=== PATIENT | female | born 1980 | race American Indian/Alaskan Native ===

== ENCOUNTER 2016-11-22 01:40 | Emergency (ER) | payer MEDICAID ==
[~2016-11-22] VITALS: Ht 162.6 cm; Wt 99.9 kg
[~2016-11-22 01:40] MED LIST: CYCL-259 PO; GABA600T2 PO; HYDR-3240 PO; SULF1TAB23 PO; TRAM50TA2 PO
[2016-11-22] MEDS ORDERED: GABA800T2 PO (02:01)
[2016-11-22] MEDS ORDERED: CYCL5TAB PO (02:02)
[2016-11-22] MEDS ORDERED: OMEP40CA6 PO (02:03)
[2016-11-22] MEDS ORDERED: ATEN25TA PO (02:03)
[2016-11-22] MEDS ORDERED: SIMV20TA3 PO (02:03)
[2016-11-22 02:26] LABS: BLOOD UREA NITROGEN 15 mg/dL (7-18)
[2016-11-22 02:32] LABS: IS PT STATUS REG ER OR PRE ER? YES
[2016-11-22 03:31] VITALS: BP 107/58
== END 2016-11-22 03:36 | disposition home or self-care (01) ==
LOC: ED 02:30
DX: J45.31 Mild persistent asthma with (acute) exacerbation (principal); E78.5 Hyperlipidemia, unspecified; I10 Essential (primary) hypertension
CPT/HCPCS: 36415; 71010; 80048; 82040; 83880; 84484; 85025; 93005; 99285

== ENCOUNTER 2017-01-08 03:52 | Observation (INO) | payer MEDICAID ==
[~2017-01-08] VITALS: Ht 162.6 cm; Wt 96.5 kg
[~2017-01-08 03:52] MED LIST changes: +ATEN25TA PO; +CYCL5TAB PO; +GABA800T2 PO; +OMEP40CA6 PO; +SIMV20TA3 PO
[2017-01-08] MEDS ORDERED: LORazepam 1MG TABLET PO ONE (04:30)
[2017-01-08 04:42] LABS: DAU SCREEN DISCLAIMER
[2017-01-08] MEDS ORDERED: LORazepam 1MG TABLET ONE (04:44)
[2017-01-08 04:49] LABS: BLOOD UREA NITROGEN 16 mg/dL (7-18)
[2017-01-08 05:09] LABS: ACETAMINOPHEN < 2 mcg/mL (10-30)
[2017-01-08 09:37] VITALS: BP 108/64
[2017-01-08] MEDS ORDERED: HYDROcodone/APAP 5/325 TABLET PO SCH (10:00)
[2017-01-08] MEDS ORDERED: OLANZAPINE 5 MG TABLET PO PRN (10:00)
[2017-01-08] MEDS ORDERED: ATENOLOL 25 MG TABLET PO SCH (10:00)
[2017-01-08] MEDS: GABAPENTIN 400 MG CAPSULE PO SCH ×3 (10:00→20:23)
[2017-01-08] MEDS ORDERED: hydrOXyzine 50MG TABLET PO PRN (10:00)
[2017-01-08] MEDS: METOPROLOL TARTRATE 100 MG TABLET PO SCH ×2 (10:21→18:00)
[2017-01-08] MEDS ORDERED: ACETAMINOPHEN 325 MG TABLET PO PRN (10:30)
[2017-01-08] MEDS ORDERED: ONDANSETRON ODT 4 MG PO PRN (10:30)
[2017-01-08] MEDS ORDERED: METOPROLOL TARTRATE 50 MG TABLET ONE ×2 (10:49→16:32)
[2017-01-08] MEDS ORDERED: NORCO MC SCH (11:00)
[2017-01-08] MEDS ORDERED: GABAPENTIN 100 MG CAPSULE ONE ×3 (12:04→20:20)
[2017-01-08] MEDS ORDERED: GABAPENTIN 300 MG CAPSULE ONE ×3 (12:05→20:20)
[2017-01-08] MEDS: POTASSIUM CHLORIDE 20 MEQ TAB.ER.PRT PO SCH ×2 (12:41→14:20)
[2017-01-08] MEDS: ENOXAPARIN 40 MG/0.4 ML SQ SCH (12:42)
[2017-01-08] MEDS: NICOTINE 21 MG/24 HR PATCH.TD24 TD SCH (12:42)
[2017-01-08] MEDS: OMEPRAZOLE 20 MG CAPSULE.DR PO SCH (14:20)
[2017-01-08 16:33] VITALS: BP 133/79
[2017-01-08 20:02] VITALS: BP 112/72
[2017-01-08] MEDS ORDERED: SIMVASTATIN 20 MG TABLET PO SCH (21:00)
[2017-01-08] MEDS ORDERED: CYCLOBENZAPRINE 10 MG TABLET PO SCH (21:00)
[2017-01-09 06:12] LABS: BLOOD UREA NITROGEN 22 mg/dL (7-18)
[2017-01-09] MEDS: METOPROLOL TARTRATE 100 MG TABLET PO SCH ×2 (06:32→18:00)
[2017-01-09] MEDS: OMEPRAZOLE 20 MG CAPSULE.DR PO SCH (07:57)
[2017-01-09] MEDS: GABAPENTIN 400 MG CAPSULE PO SCH ×2 (07:57→16:01)
[2017-01-09 08:28] VITALS: BP 107/71
[2017-01-09] MEDS: NICOTINE 21 MG/24 HR PATCH.TD24 TD SCH (10:54)
[2017-01-09] MEDS: ENOXAPARIN 40 MG/0.4 ML SQ SCH (10:55)
[2017-01-09 18:05] VITALS: BP 106/74
== END 2017-01-09 18:33 ==
LOC: ED 06:03 → EDIP 07:48 → 3E 09:26 → INTOOBSV 10:09 → OBSVTOIN 10:09
PROVIDERS: ADMIT Internal Medicine; ATTEND Internal Medicine
DX: R45.851 Suicidal ideations (principal); F32.9 Major depressive disorder, single episode, unspecified; E87.6 Hypokalemia; J45.909 Unspecified asthma, uncomplicated; K21.9 Gastro-esophageal reflux disease without esophagitis; I10 Essential (primary) hypertension; G62.9 Polyneuropathy, unspecified; F41.1 Generalized anxiety disorder; Z95.5 Presence of coronary angioplasty implant and graft
CPT/HCPCS: 36415; 80048; 80307; 80329; 82040; 84443; 84702; 84703; 85025; 87040; 87324; 93005; 93306; 96372; 99285; G0378; J1650; G0480

== ENCOUNTER 2018-10-24 14:46 | Emergency (ER) | payer MEDICAID ==
[~2018-10-24] VITALS: Ht 165.1 cm; Wt 101.9 kg
[~2018-10-24 14:46] MED LIST changes: -GABA600T2 PO; +GABA600T7 PO; -GABA800T2 PO; +GABA800T5 PO
--- NOTE | 2018-10-24 15:09 | NUR ---
PT STATED "SHE COULDNT SEE ANYTHING WITH JUST HER LEFT EYE" DURING [facility]
[2018-10-24] MEDS ORDERED: PROPARACAINE OPHTH 0.5%, 15ML EACHEYE ONE (15:30)
[2018-10-24] MEDS ORDERED: FLUORESCEIN/BENOXINATE 5 ML DROPS OP ONE (15:30)
[2018-10-24] MEDS ORDERED: FLUORESCEIN OPHTHALMIC 1 MG STRIP ONE (15:36)
[2018-10-24] MEDS ORDERED: PROPARACAINE OPHTH 0.5%, 15ML ONE (15:36)
--- NOTE | 2018-10-24 15:44 | NUR ---
FIRST CONTACT WITH PT. Per Pt, "yesterday I was sitting watching TV and all of the sudden loss all vision in my left eye. I had an eye doctor appt today so I just waited till I saw them. The said I had a tear behind my eye in the left eye with an ultrasound they saw that. They sent me here." NADN. All safety measures in place. Pt is AOX4, skin is pink, warm, and dry, and pt has unlabored respiratiosn equal bilaterally. Call light within reach.
--- NOTE | 2018-10-24 16:24 | NUR ---
Spoke to Jessica from, Dr. Paco Bautista's office at [facility]. Dr. Bautista's office wants pt to go to [facility] due to [facility] does not take N medicaid. Per Jessica, "Go to [facility], no food or water after 12 am tonight for possible surgery with Dr. Mccurdy tomorrow." ED MD notified.
--- NOTE | 2018-10-24 17:24 | NUR ---
PT. WAS GIVEN DISCHARGE INSTRUCTIONS WITH UNDERSTANDING VERBALIZED ALONG WITH WILLINGNESS TO COMPLY. PT. WAS AMBULATORY TO THE DISCHARGE DESK. VSS.
[2018-10-24 17:25] VITALS: BP 143/94
== END 2018-10-24 17:27 | disposition home or self-care (01) ==
LOC: ED 17:25
DX: H53.132 Sudden visual loss, left eye (principal); H33.22 Serous retinal detachment, left eye; I10 Essential (primary) hypertension
CPT/HCPCS: 99284

== ENCOUNTER 2019-05-17 17:10 | Emergency (ER) | payer MEDICAID ==
[~2019-05-17] VITALS: Ht 162.6 cm; Wt 98.5 kg
[~2019-05-17 17:10] MED LIST changes: +OMEP40CA42 PO; -OMEP40CA6 PO
--- NOTE | 2019-05-17 19:09 | NUR ---
ASSUMED CARE OF PT FROM LOBBY. PT C/O CP SINCE NOON TODAY WHILE WORKING AT [employer]. PT DESCRIBES PAIN SHARP RADIATING ACROSS CHEST AND DOWN BOTH ARMS. CP NOW IS STERNAL AND REPRODUCIBLE WITH ARM MOVEMENT AND PALPATION. PT ON MONITOR. CHART UP FOR .
--- NOTE | 2019-05-17 19:45 | NUR ---
REPORT RECEIVED FROM JAIR CONNOR. ASSUMED CARE OF PT AT THIS TIME.
[2019-05-17] MEDS ORDERED: ASPIRIN 81 MG TABLET CHEW ONE (19:59)
[2019-05-17] MEDS ORDERED: KETOROLAC 60 MG/2 ML ONE (19:59)
[2019-05-17] MEDS ORDERED: ASPIRIN 81 MG TABLET CHEW PO ONE (20:00)
[2019-05-17] MEDS ORDERED: KETOROLAC 30 MG/1 ML IM ONE (20:00)
[2019-05-17 20:02] LABS: BASOPHILS # (AUTO) 0.05 x10^3/uL (0-0.1); BASOPHILS % (AUTO) 1 % (0-1); EOSINOPHILS # (AUTO) 0.13 x10^3/uL (0-0.4); EOSINOPHILS % (AUTO) 2 % (1-7); LYMPHOCYTES # (AUTO) 2.98 x10^3/uL (1-3.4); LYMPHOCYTES % (AUTO) 33 % (22-44); MD NO; MEAN CORPUSCULAR HEMOGLOBIN 30.3 pg (27.0-34.8); MEAN CORPUSCULAR HGB CONC 32.5 g/dL (32.4-35.8); MEAN CORPUSCULAR VOLUME 93.1 fL (80-100); MEAN PLATELET VOLUME 8.4 fL (7.4-10.4); MONOCYTES # (AUTO) 0.45 x10^3/uL (0.2-0.8); MONOCYTES % (AUTO) 5 % (2-9); NEUTROPHILS # (AUTO) 5.46 x10^3/uL (1.8-6.8); NEUTROPHILS % (AUTO) 60 % (42-75); PLATELET COUNT 310 x10^3/uL (130-400); RED BLOOD COUNT 4.41 x10^6/uL (3.82-5.3); RED CELL DISTRIBUTION WIDTH 14.4 % (9.6-15.2)
[2019-05-17 20:12] LABS: ALBUMIN 3.6 g/dL (3.4-5.0); ANION GAP 8 mmol/L (5-15); CALCIUM 8.6 mg/dL (8.5-10.1); CHLORIDE 109 mmol/L (98-107)
--- NOTE | 2019-05-17 20:15 | NUR ---
PT MEDICATED ORDERED FOR 7/10 CHEST PAIN THAT IS WORSE WITH MOVEMENT AND PALPATION. PT AO X 4. SKIN PWD. RESP EVEN AND UNLABORED. NAD NOTED AT THIS TIME. PT CALMLY WATCHING TV. PT ON CONT BP, CARDIAC AND O2 MONITORS. NSR 70'S NOTED ON CARDIAC MONTIORS. CALL LIGHT WITHIN ERACH. WILL CONT TO MONITOR PT.
[2019-05-17 20:18] LABS: ALANINE AMINOTRANSFERASE 24 U/L (12-78); ALKALINE PHOSPHATASE 85 U/L (45-117); BILIRUBIN,TOTAL 0.5 mg/dL (0.2-1.0); CREATININE 0.71 mg/dL (0.55-1.02); TOTAL PROTEIN 7.2 g/dL (6.4-8.2); TROPONIN I < 0.015 ng/mL (0.000-0.045)
[2019-05-17 21:35] VITALS: BP 106/47
--- NOTE | 2019-05-17 21:38 | NUR ---
PT CURRENTLYR RESTING ON GURNEY. NAD NOTED. SKIN PWD. RESP EVEN AND UNLABORED. PT REPORTS THAT PAIN IS IMPROVED AND TOLERABLE AT 2/10. PT WATCHING TV. NAD NOTED. SKIN PWD. RESP EVEN AND UNLABORED. CALL LIGHT WITHIN REACH. WILL CONT TO MONITOR PT.
--- NOTE | 2019-05-17 21:59 | NUR ---
REPORT TO JAIR WARREN WHO ASSUMED CARE OF PT.
== END 2019-05-17 22:11 | disposition home or self-care (01) ==
LOC: ED 22:01
DX: R07.89 Other chest pain (principal); F17.200 Nicotine dependence, unspecified, uncomplicated; I10 Essential (primary) hypertension; J45.909 Unspecified asthma, uncomplicated; Z90.49 Acquired absence of other specified parts of digestive tract
CPT/HCPCS: 36415; 80053; 84484; 85025; 93005; 96372; 99284; J1885

== ENCOUNTER 2019-07-18 09:57 | Emergency (ER) | payer MEDICAID ==
[~2019-07-18] VITALS: Ht 162.6 cm; Wt 102.6 kg
[2019-07-18 10:03] VITALS: BP 143/79
[2019-07-18] MEDS ORDERED: CYCLOBENZAPRINE 10 MG TABLET ONE (11:29)
[2019-07-18] MEDS ORDERED: KETOROLAC 30 MG/1 ML ONE (11:29)
[2019-07-18] MEDS ORDERED: CYCLOBENZAPRINE 10 MG TABLET PO ONE (11:30)
[2019-07-18] MEDS ORDERED: KETOROLAC 30 MG/1 ML IM ONE (11:30)
== END 2019-07-18 13:05 | disposition home or self-care (01) ==
LOC: ED 13:00
DX: M54.42 Lumbago with sciatica, left side (principal); I10 Essential (primary) hypertension; J45.909 Unspecified asthma, uncomplicated; Z88.0 Allergy status to penicillin
CPT/HCPCS: 72080; 72110; 73502; 93005; 96372; 99283; J1885

== ENCOUNTER 2019-11-02 11:40 | Emergency (ER) | payer MEDICAID ==
[~2019-11-02] VITALS: Ht 162.6 cm; Wt 100.0 kg
[~2019-11-02 11:40] MED LIST changes: +SIMV20TA19 PO; -SIMV20TA3 PO
[2019-11-02 12:01] VITALS: BP 122/80
--- NOTE | 2019-11-02 12:04 | NUR ---
connectec to monitor. in gown. call light within reach
[2019-11-02] MEDS ORDERED: DIPH,PERTUSS(ACELL),TET VAC/PF 0.5 ML IM-VACC ONE (12:30)
[2019-11-02] MEDS ORDERED: LIDOCAINE 1%-EPI 1:100K, 20ML INFIL ONE (12:30)
[2019-11-02] MEDS ORDERED: DIVALPROEX 250 MG TABLET.DR PO ONE (14:00)
[2019-11-02] MEDS ORDERED: ARIPIPRAZOLE 5 MG TABLET PO ONE (14:00)
[2019-11-02] MEDS ORDERED: DOXEPIN 100 MG CAPSULE PO SCH (21:00)
== END 2019-11-02 13:57 | disposition home or self-care (01) ==
LOC: ED 12:47
DX: F25.8 Other schizoaffective disorders (principal); I10 Essential (primary) hypertension; J45.909 Unspecified asthma, uncomplicated; F31.9 Bipolar disorder, unspecified; Z90.49 Acquired absence of other specified parts of digestive tract
CPT/HCPCS: 99283

== ENCOUNTER 2019-12-31 15:38 | Emergency (ER) | payer MEDICAID ==
[~2019-12-31] VITALS: Ht 162.6 cm; Wt 89.5 kg
[2019-12-31 15:40] VITALS: BP 124/67
--- NOTE | 2019-12-31 16:00 | NUR ---
assumed care of pt. report from Kinjal ADAM. pt here for SI with plan, +high lethaliy. pt has been undressed and room secured. sitter present fo safety. no family at bedside
--- NOTE | 2019-12-31 16:17 | NUR ---
psych at bedside for eval Addendum: 12/31/19 at 1646 by CECIL SW/CM at bedside for eval
--- NOTE | 2019-12-31 16:30 | NUR ---
pt here for SI with plan. pt reports that she is very depressed and is plannig to slit her throat with a knife. pt denies past SA. reports that she has access to method. pt reports that she is upset D/T arguing with her neighbors as well as the fact that she is from her . pt is very tearful. pt reports that she has schizohrenia and that she has seizures and that she has been off of her meds for at least 2 weeks because she ran out and cannot get them filled. pt admits to visual and auditory hallucinations. able to answer questions and follow commands. cooperative. room secure and sitter at bedside for safety. warm blankets given for comfort. belongings have been secured
[2019-12-31 16:34] LABS: AMPHETAMINE SCREEN, URINE Positive (Negative); BARBITURATE SCREEN, URINE Negative (Negative); BENZODIAZEPINE SCREEN, URINE Negative (Negative); CANNABINOID SCREEN, URINE Negative (Negative); COCAINE SCREEN, URINE Negative (Negative); METHADONE SCREEN, URINE Negative (Negative); OPIATE SCREEN, URINE Negative (Negative)
--- NOTE | 2019-12-31 16:51 | NUR ---
urine sample was collected and sent by Kinjal ADAM at time of check-in
[2019-12-31] MEDS ORDERED: HYDROXYZINE PAMOATE 50MG CAP PO PRN (17:00)
[2019-12-31] MEDS ORDERED: TRAZODONE 50MG TABLET PO PRN (17:00)
[2019-12-31] MEDS ORDERED: ARIPIPRAZOLE 5 MG TABLET PO SCH (17:00)
[2019-12-31 17:13] LABS: BASOPHILS # (AUTO) 0.02 x10^3/uL (0-0.1); BASOPHILS % (AUTO) 0 % (0-1); EOSINOPHILS # (AUTO) 0.08 x10^3/uL (0-0.4); EOSINOPHILS % (AUTO) 1 % (1-7); LYMPHOCYTES # (AUTO) 2.03 x10^3/uL (1-3.4); LYMPHOCYTES % (AUTO) 36 % (22-44); MD NO; MEAN CORPUSCULAR HEMOGLOBIN 30.7 pg (27.0-34.8); MEAN CORPUSCULAR HGB CONC 33.2 g/dL (32.4-35.8); MEAN CORPUSCULAR VOLUME 92.5 fL (80-100); MEAN PLATELET VOLUME 8.9 fL (7.4-10.4); MONOCYTES # (AUTO) 0.35 x10^3/uL (0.2-0.8); MONOCYTES % (AUTO) 6 % (2-9); NEUTROPHILS # (AUTO) 3.13 x10^3/uL (1.8-6.8); NEUTROPHILS % (AUTO) 56 % (42-75); PLATELET COUNT 261 x10^3/uL (130-400); RED BLOOD COUNT 4.07 x10^6/uL (3.82-5.3); RED CELL DISTRIBUTION WIDTH 12.9 % (9.6-15.2)
[2019-12-31 17:18] LABS: ALBUMIN 3.3 g/dL (3.4-5.0); ANION GAP 6 mmol/L (5-15); CALCIUM 8.6 mg/dL (8.5-10.1); CHLORIDE 112 mmol/L (98-107); SALICYLATE LEVEL 3.3 mg/dL (2.8-20.0)
[2019-12-31 17:23] LABS: ALANINE AMINOTRANSFERASE 33 U/L (12-78); ALKALINE PHOSPHATASE 85 U/L (45-117); BILIRUBIN,TOTAL 0.3 mg/dL (0.2-1.0); CREATININE 0.65 mg/dL (0.55-1.02); TOTAL PROTEIN 6.7 g/dL (6.4-8.2)
--- NOTE | 2019-12-31 17:56 | NUR ---
no changes. pt resting in position of comfort with room secured and sitter at bedside. no apparent distress
--- NOTE | 2019-12-31 18:54 | NUR ---
PACKET FAXED TO [facility], [facility] AND [facility]
--- NOTE | 2019-12-31 18:59 | NUR ---
pt resting in position of comfort. no new c/o, no changes. room secured and sitter present for safety. report to Shy ADAM
--- NOTE | 2019-12-31 19:04 | NUR ---
pt accepted by [facility]. ED RN to call report @[phone], phine [phone] ask for Vanessa. accepting MD is Dr. Nelson. pt can be transferred to arrive at facility @ [phone]
[2019-12-31] MEDS ORDERED: DIVA125T2 PO (20:08)
--- NOTE | 2019-12-31 20:17 | NUR ---
Report called to Vanessa ADAM at [facility], discussed pt condition and safety, no medications given, no further questions .[facility] ETA 2100
[2019-12-31] MEDS ORDERED: DIVALPROEX 500 MG TAB.ER.24H PO SCH (21:00)
--- NOTE | 2019-12-31 22:08 | NUR ---
TP RN: CALLED BACK FOR NEW ETA FROM [facility] FOR TRANSPORT ORIGINAL ETA WAS 2100; PER [facility] DISPATCH UNIT IS HERE NOW.
[2019-12-31] MEDS ORDERED: ALBUTEROL/IPRATROPIUM 2.5MG/0.5MG, 3 ML ONE (23:20)
== END 2019-12-31 22:11 ==
LOC: ED 18:34
DX: R45.851 Suicidal ideations (principal); F25.9 Schizoaffective disorder, unspecified; F17.200 Nicotine dependence, unspecified, uncomplicated; I10 Essential (primary) hypertension; J45.909 Unspecified asthma, uncomplicated; Z90.49 Acquired absence of other specified parts of digestive tract
CPT/HCPCS: 36415; 80053; 80307; 84703; 85025; 99285

== ENCOUNTER 2020-03-16 09:59 | Emergency (ER) | payer MEDICAID ==
[~2020-03-16] VITALS: Ht 162.6 cm; Wt 89.1 kg
[~2020-03-16 09:59] MED LIST changes: +DIVA125T2 PO
[2020-03-16] MEDS ORDERED: SODIUM CHLORIDE 0.9% 1,000 ML IV ONE (10:08)
[2020-03-16] MEDS ORDERED: SODIUM CHLORIDE FLUSH 10ML SYR IVF ONE (10:30)
[2020-03-16] MEDS ORDERED: SODIUM CHLORIDE 0.9% 1,000ML IVBOLUS ONE (10:30)
[2020-03-16] MEDS ORDERED: ONDANSETRON 2MG/ML, 2ML IVPush ONE (10:30)
[2020-03-16 10:46] LABS: BASOPHILS # (AUTO) 0.02 x10^3/uL (0-0.1); BASOPHILS % (AUTO) 0 % (0-1); EOSINOPHILS # (AUTO) 0.04 x10^3/uL (0-0.4); EOSINOPHILS % (AUTO) 1 % (1-7); LYMPHOCYTES # (AUTO) 1.27 x10^3/uL (1-3.4); LYMPHOCYTES % (AUTO) 15 % (22-44); MD NO; MEAN CORPUSCULAR HEMOGLOBIN 30.9 pg (27.0-34.8); MEAN CORPUSCULAR HGB CONC 33.7 g/dL (32.4-35.8); MEAN CORPUSCULAR VOLUME 91.9 fL (80-100); MEAN PLATELET VOLUME 8.1 fL (7.4-10.4); MONOCYTES # (AUTO) 0.37 x10^3/uL (0.2-0.8); MONOCYTES % (AUTO) 4 % (2-9); NEUTROPHILS # (AUTO) 6.86 x10^3/uL (1.8-6.8); NEUTROPHILS % (AUTO) 80 % (42-75); PLATELET COUNT 261 x10^3/uL (130-400); RED BLOOD COUNT 4.12 x10^6/uL (3.82-5.3); RED CELL DISTRIBUTION WIDTH 12.8 % (9.6-15.2)
[2020-03-16 10:57] LABS: ALANINE AMINOTRANSFERASE 20 U/L (12-78); ALBUMIN 3.2 g/dL (3.4-5.0); ANION GAP 5 mmol/L (5-15); CALCIUM 8.4 mg/dL (8.5-10.1); CHLORIDE 114 mmol/L (98-107); CREATININE 0.73 mg/dL (0.55-1.02)
[2020-03-16 10:59] LABS: ALKALINE PHOSPHATASE 84 U/L (45-117); BILIRUBIN,TOTAL 0.3 mg/dL (0.2-1.0); TOTAL PROTEIN 6.5 g/dL (6.4-8.2)
[2020-03-16 11:38] VITALS: BP 110/63
[2020-03-16] MEDS ORDERED: ONDANSETRON 2MG/ML, 2ML ONE (11:54)
[2020-03-16 12:14] LABS: MICROSCOPIC INDICATED
--- NOTE | 2020-03-16 12:22 | NUR ---
PT RESTING COMFORTABLY. PT DRANK APPROX 240ML H2O WITH NO N/V.
[2020-03-16] MEDS ORDERED: NEOSPORIN OINT. PKT 1 PACKET ONE (15:28)
== END 2020-03-16 13:08 | disposition home or self-care (01) ==
LOC: ED 10:27
DX: K52.9 Noninfective gastroenteritis and colitis, unspecified (principal); R11.2 Nausea with vomiting, unspecified; I10 Essential (primary) hypertension; E11.9 Type 2 diabetes mellitus without complications
CPT/HCPCS: 36415; 74022; 80053; 81001; 83690; 85025; 87086; 93005; 96361; 96374; 99285; J2405; J7030